=== PATIENT | male | born 1985 | race Hispanic/Latino ===

== ENCOUNTER 2020-11-07 15:51 | Emergency (ER) | payer BC, OTHER ==
[2020-11-07] MEDS ORDERED: ONDANSETRON ODT 4 MG TAB ONE (16:23)
[2020-11-07] MEDS ORDERED: LIDOCAINE HCL 2% VISCOUS 15 ML UDCUP ONE (16:23)
[2020-11-07] MEDS ORDERED: MAGNESIUM HYDROXIDE 30 ML/UDCUP ONE (16:23)
[2020-11-07] MEDS ORDERED: FAMOTIDINE 20MG TAB 20 MG TAB ONE (16:23)
[2020-11-07 16:25] LABS: BASOPHILS % (AUTO) 0.7 % (0.0-5.0); HEMATOCRIT 49.7 % (42-54); LYMPHOCYTES % (AUTO) 26.6 % (21.0-51.0); MEAN CORPUSCULAR HEMOGLOBIN 28.4 pg (27.0-33.0); MEAN CORPUSCULAR HGB CONC 33.2 g/dL (32.0-36.0); MEAN CORPUSCULAR VOLUME 85.7 fL (79-99); MONOCYTES % (AUTO) 6.9 % (3.0-13.0); NEUTROPHILS % (AUTO) 64.1 % (40.0-77.0); PLATELET COUNT (AUTO) 233 K/uL (130-400); WHITE BLOOD COUNT (AUTO) 9.7 K/uL (4.8-10.8)
[2020-11-07 16:39] LABS: INR 1.13 (0.85-1.15); PROTHROMBIN TIME 12.2 SEC (9.6-11.6)
[2020-11-07 16:40] LABS: PARTIAL THROMBOPLASTIN TIME 26.9 SEC (26.3-35.5)
[2020-11-07 16:42] LABS: ALBUMIN 3.2 g/dL (3.5-5.0); BILIRUBIN,TOTAL 2.2 mg/dL (0.2-1.0); TOTAL PROTEIN, SERUM 7.6 g/dL (6.0-8.3)
[2020-11-07 16:45] LABS: POTASSIUM 2.9 mmol/L (3.5-5.1)
[2020-11-07 16:48] LABS: CREATININE 0.7 mg/dL (0.5-1.5)
[2020-11-07] MEDS ORDERED: POTASSIUM BICARB/CIT AC 25 MEQ TABLET.EFF ONE (17:24)
== END 2020-11-07 17:47 | disposition home or self-care (01) ==
LOC: EDH 15:51
DX: K29.70 Gastritis, unspecified, without bleeding (principal); E87.6 Hypokalemia; E66.9 Obesity, unspecified; Z20.822 Contact with and (suspected) exposure to COVID-19; E11.9 Type 2 diabetes mellitus without complications; I10 Essential (primary) hypertension; E78.00 Pure hypercholesterolemia, unspecified; Z79.899 Other long term (current) drug therapy; Z68.43 Body mass index [BMI] 50.0-59.9, adult
CPT/HCPCS: 36415; 71045; 80053; 83690; 84484; 85025; 85610; 85730; 87426; 93005; 99285; U0003